=== PATIENT | male | born 1995 | race Caucasian/White ===

== ENCOUNTER 2016-07-12 04:09 | Emergency (ER) | payer OTHER ==
[2016-07-12 04:17] VITALS: BP 125/75; PULSE 80; RESP 16; TEMP 97.2; O2SAT 99
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
[2016-07-12 05:00] LABS: AUTOMATED NEUTROPHIL # 8.6 TH/MM3 (1.8-7.7); BASOPHIL % 0.3 % (0.0-2.0); EOSINOPHIL # 0.3 TH/MM3 (0-0.4); HEMATOCRIT 41.4 % (39.0-51.0); HEMO FLAGS DIFF FINAL; LYMPH % 23.9 % (9.0-44.0); LYMPHOCYTE # 3.1 TH/MM3 (1.0-4.8); MEAN CELL VOLUME 81.9 FL (80.0-100.0); MEAN CORPUSCULAR HEMOGLOBIN 26.7 PG (27.0-34.0); MEAN CORPUSCULAR HGB CONC 32.6 % (32.0-36.0); MONO % 7.2 % (0.0-8.0); NEUT % 66.6 % (16.0-70.0); PLATELET COUNT 254 TH/MM3 (150-450); RED BLOOD COUNT 5.05 MIL/MM3 (4.50-5.90); RED CELL DISTRIBUTION WIDTH 13.5 % (11.6-17.2); WHITE BLOOD COUNT 12.9 TH/MM3 (4.0-11.0)
[2016-07-12 05:14] LABS: ACETAMINOPHEN LESS THAN 2.0 MCG/ML (10.0-30.0); ALT (GPT) 19 U/L (9-52); ANION GAP 4 MEQ/L (5-15); AST (GOT) 19 U/L (15-39); BICARBONATE 29.6 MEQ/L (21.0-32.0); BLOOD UREA NITROGEN 9 MG/DL (7-18); CHLORIDE 106 MEQ/L (98-107); GLOMERULAR FILTRATION RATE 76 ML/MIN (>89); POTASSIUM 3.5 MEQ/L (3.5-5.1); SODIUM (NA) 140 MEQ/L (136-145)
[2016-07-12 05:16] LABS: ALKALINE PHOSPHATASE 76 U/L (45-117); TOTAL BILIRUBIN ADULT 0.4 MG/DL (0.2-1.0)
[2016-07-12 06:50] LABS: AMPHETAMINE, URINE NEG (NEG); BARBITURATES, URINE NEG (NEG); COCAINE, URINE NEG (NEG)
[2016-07-12 09:33] VITALS: BP 97/48; PULSE 56; RESP 18; O2SAT 97
[2016-07-12 13:40] VITALS: BP 116/71; PULSE 61; RESP 16; O2SAT 98
--- NOTE | 2016-07-12 15:31 | PD ---
History of Present Illness Chief Complaint: Medical Clearance Time Seen by Provider: 15:00 Travel History International Travel<30 Days: No Contact w/Intl Traveler<30days: No Known affected area: No Legal Status Legal Status: Veronica Act Veronica Act Signed By: History of Present Illness: 21-year-old male who was Veronica acted for making suicidal statements. At the present time the patient is calm, pleasant and cooperative. He states that he smokes marijuana on a daily basis and gets into frequent arguments with his parents. He admits to arguing with his parents last night but does not remember the reason for the argument. At this time he states he is not intoxicated with alcohol or marijuana and he denies any suicidal or homicidal ideation, plan or intent. His cognition is intact and he has no psychotic symptoms. He is verbally ted for safety and would like to go home. He does have a job that he wants to return to. [facility] Past Medical History ADD: Yes ADHD: Yes Depression: Yes Diminished Hearing: No Tetanus Vaccination: < 5 Years Influenza Vaccination: No Past Surgical History Abdominal Surgery: Yes (HERNIA REPAIR @ 3 YOA) Psychiatric History Psychiatric History Hx Psychiatric Treatment: Has seen an outpatient psychiatrist previously and states he can go back to that person. History of Inpatient Treatment: No Guns or firearms in home: No Social History Hx Alcohol Use: Yes Hx Tobacco Use: No Hx Substance Use: Yes (marijuana) Allergies-Medications (Allergen,Severity, Reaction): Coded Allergies: No Known Allergies (Unverified , 07/12/16) Reported Meds & Prescriptions Reported Meds & Active Scripts Active No Active Prescriptions or Reported Medications Review of Systems Except as stated in HPI: all other systems reviewed are Neg Exam Alert: Yes [place]: Person, Place, Date, Situation Mood: Calm Affect: Appropriate Speech: Clear, Logical Eye Contact: Normal Memory Intact: Immediate, Recent, Remote Insight/Judgement Adequate at this time. MDM Medical Decision Making Medical Record Reviewed: Yes Assessment/Plan Veronica act is being lifted and the patient is being discharged home. He does not meet criteria for inpatient psychiatric hospitalization. He is willing to be seen on an outpatient basis and states he can do that himself. He insists that he will continue to smoke marijuana on a daily basis. He is competent to make these decisions and verbally contract for safety. Orders Complete Blood Count With Diff (07/12/16 04:15) Comprehensive Metabolic Panel (07/12/16 04:15) Psych Screen (07/12/16 04:15) Drug Screen, Random Urine (07/12/16 04:15) Alcohol (Ethanol) (07/12/16 04:15) Salicylates (Aspirin) (07/12/16 04:15) Tylenol (Acetaminophen) (07/12/16 04:15) Diet Regular Basic (07/12/16 Breakfast) Diet Regular Basic (07/12/16 Lunch) Results Vital Signs Date Time Temp Pulse Resp B/P Pulse Ox O2 Delivery O2 Flow Rate FiO2 07/12/16 13:40 61 16 116/71 98 Room Air 07/12/16 09:33 56 18 97/48 97 Room Air 07/12/16 04:17 97.2 80 16 125/75 99 Laboratory Tests Test 07/12/16 07/12/16 04:30 06:23 White Blood Count 12.9 Red Blood Count 5.05 Hemoglobin 13.5 Hematocrit 41.4 Mean Corpuscular Volume 81.9 Mean Corpuscular Hemoglobin 26.7 Mean Corpuscular Hemoglobin 32.6 Concent Red Cell Distribution Width 13.5 Platelet Count 254 Mean Platelet Volume 8.3 Neutrophils (%) (Auto) 66.6 Lymphocytes (%) (Auto) 23.9 Monocytes (%) (Auto) 7.2 Eosinophils (%) (Auto) 2.0 Basophils (%) (Auto) 0.3 Neutrophils # (Auto) 8.6 Lymphocytes # (Auto) 3.1 Monocytes # (Auto) 0.9 Eosinophils # (Auto) 0.3 Basophils # (Auto) 0.0 CBC Comment DIFF FINAL Differential Comment Sodium Level 140 Potassium Level 3.5 Chloride Level 106 Carbon Dioxide Level 29.6 Anion Gap 4 Blood Urea Nitrogen 9 Creatinine 1.22 Estimat Glomerular Filtration 76 Rate Random Glucose 83 Calcium Level 9.5 Total Bilirubin 0.4 Aspartate Amino Transf 19 (AST/SGOT) Alanine Aminotransferase 19 (ALT/SGPT) Alkaline Phosphatase 76 Total Protein 7.3 Albumin 4.0 Salicylates Level 2.3 Acetaminophen Level LESS THAN 2.0 Ethyl Alcohol Level LESS THAN 3 Urine Opiates Screen NEG Urine Barbiturates Screen NEG Urine Amphetamines Screen NEG Urine Benzodiazepines Screen POS Urine Cocaine Screen NEG Urine Cannabinoids Screen POS Diagnosis Primary Impression: Medical clearance for psychiatric admission Additional Impressions: Suicidal ideations Adjustment disorder with mixed disturbance of emotions and conduct Departure Forms: Tests/Procedures Patient Instructions: General Instructions Prescriptions No Active Prescriptions or Reported Meds Disposition: 01 DISCHARGE HOME Condition: Stable Problem Qualifiers Jeo Melara MD Jul 12, 2016 15:31
== END 2016-07-12 15:15 | disposition home or self-care (01) ==
LOC: NEPD 04:09
DX: R45.851 Suicidal ideations (principal); S01.81XA Laceration without foreign body of other part of head, initial encounter; S00.11XA Contusion of right eyelid and periocular area, initial encounter; S80.811A Abrasion, right lower leg, initial encounter; S60.511A Abrasion of right hand, initial encounter; X83.8XXA Intentional self-harm by other specified means, initial encounter; Y93.9 Activity, unspecified; Y92.89 Other specified places as the place of occurrence of the external cause
CPT/HCPCS: 80053; 80307; 85025; 99284

== ENCOUNTER 2016-09-02 14:55 | Emergency (ER) | payer OTHER ==
[~2016-09-02] VITALS: Ht 177.8 cm; Wt 59.0 kg
[2016-09-02 14:56] VITALS: BP 119/62; PULSE 68; RESP 16; TEMP 98.5; O2SAT 97
--- NOTE | 2016-09-02 17:26 | PD ---
HPI Chief Complaint: Musculoskeletal Complaint Time Seen by Provider: 17:05 Travel History International Travel<30 days: No Contact w/Intl Traveler<30days: No Traveled to known affect area: No History of Present Illness HPI 21-year-old male percents emergency department for evaluation of left bicep pain 4 days. Patient reports he was playing with his girlfriend's dog when he felt a pain within the left biceps picking up a dog. The pain has remained despite taking [id number] Tylenol. Patient denies numbness/tingling/ weakness of the extremity. He has full range of motion of the arm. He has normal sensation. No fever chills. Pain is mild in nature, nonradiating worse with movement relieved with rest. PFSH Past Medical History ADD: Yes ADHD: Yes Depression: Yes Diminished Hearing: No Past Surgical History Abdominal Surgery: Yes (HERNIA REPAIR @ 3 YOA) Social History Alcohol Use: Yes Tobacco Use: No Substance Use: Yes (marijuana) Allergies-Medications (Allergen,Severity, Reaction): Coded Allergies: No Known Allergies (Unverified , 07/12/16) Reported Meds & Prescriptions Reported Meds & Active Scripts Active No Active Prescriptions or Reported Medications Review of Systems Except as stated in HPI: all other systems reviewed are Neg Physical Exam Narrative GENERAL: Well-nourished, well-developed patient. SKIN: Focused skin assessment warm/dry. HEAD: Normocephalic. EYES: No scleral icterus. No injection or drainage. NECK: Supple, trachea midline. No JVD or lymphadenopathy. CARDIOVASCULAR: Regular rate and rhythm without murmurs, gallops, or rubs. RESPIRATORY: Breath sounds equal bilaterally. No accessory muscle use. GASTROINTESTINAL: Abdomen soft, non-tender, nondistended. MUSCULOSKELETAL: No cyanosis, or edema. Left upper extremity: Tenderness along the soft tissue of the left biceps. There is no swelling. She has full range of motion. 2+ brachial and radial pulses. Extremities neurovascularly intact. BACK: Nontender without obvious deformity. No CVA tenderness. Data Data Last Documented VS Vital Signs Date Time Temp Pulse Resp B/P Pulse Ox O2 Delivery O2 Flow Rate FiO2 09/02/16 14:56 98.5 68 16 119/62 97 Room Air MDM Medical Decision Making Medical Screen Exam Complete: Yes Emergency Medical Condition: Yes Differential Diagnosis Biceps tendon injury, tendinitis, overuse syndrome, upper arm strain Narrative Course 21-year-old male with chief complaint of left bicep pain 4 days. Patient reports injury occurred when he was picking up his car. Patient's physical exam is consistent with upper extremity strain. He has mild tenderness in the bicep region. He has full range of motion. Patient be treated for upper extremity strain. Instructed take [id number] Motrin as needed. Patient verbalizes understanding agrees to plan Diagnosis Primary Impression: Upper extremity tendon strain Qualified Code: S46.909A - Upper extremity tendon strain, unspecified laterality, initial encounter Referrals: Primary Care Physician Additional Instructions: Take [id number] Motrin [id number] milligrams by mouth every 6-8 hours as needed for pain. Apply heat and/or ice for comfort. Avoid heavy lifting or strenuous activity. Scripts No Active Prescriptions or Reported Meds Disposition: 01 DISCHARGE HOME Condition: Stable Leandra Hall Sep 02, 2016 17:26
== END 2016-09-02 18:10 | disposition home or self-care (01) ==
LOC: NEPK 14:55
DX: S46.212A Strain of muscle, fascia and tendon of other parts of biceps, left arm, initial encounter (principal); F90.9 Attention-deficit hyperactivity disorder, unspecified type; F32.9 Major depressive disorder, single episode, unspecified; X58.XXXA Exposure to other specified factors, initial encounter
CPT/HCPCS: 99282